=== PATIENT | female | born 1965 | race Caucasian/White ===

== ENCOUNTER → 2016-10-10 | Day surgery (SDC) | payer BC ==
--- NOTE | 2016-10-12 08:07 | PATH ---
Cytology Non-Gynecological Report Patient Name: DEMETRIA HOWARD [facility]. Rec. #: [id number] /Age/Gender: 1965 (Age: 51) / F Account: [id number] Location: RADIOLOGY Taken: 10/10/2016 Received: 10/10/2016 Reported: 10/12/2016 Physicians: Tuan James M.D. Specimen(s) Received LEFT THYROID FNA Clinical History Left thyroid nodule, 1.82 x 1.37 x 1.41 cm Final Diagnosis THYROID GLAND, LEFT LOBE, US GUIDED FINE NEEDLE ASPIRATION BIOPSY: SATISFACTORY FOR EVALUATION. NO MALIGNANT CELLS IDENTIFIED. CONSISTENT WITH NODULAR GOITER WITH CYSTIC CHANGE (BENIGN FOLLICULAR NODULE, B[place]ESDA CATEGORY II, BENIGN), SEE COMMENT. Comment: The smears and the cell block show scattered clusters of follicular epithelial cells with Hurthle cell (oncocytic) change. Numerous macrophages are present indicative of cystic change; cyst lining cells are also present. Abundant colloid is present. Electronically Signed Alfonzo Wallace M.D. Gross Description Received are four air dried smears, four smears in 95% alcohol, and 20 cc of bloody fluid in formalin. Four diff-quik stained slides, four Pap stained slides and one cell block are made.
== END | disposition home or self-care (01) ==
LOC: JRADIR 08:18
PROVIDERS: ATTEND Internal Medicine Endocrinology, Diabetes & Metabolism
PROC: 0G9G3ZX Drainage of Left Thyroid Gland Lobe, Percutaneous Approach, Diagnostic (ICD-10-PCS; principal; 2016-10-10)
PROC: BG44ZZZ Ultrasonography of Thyroid Gland (ICD-10-PCS; 2016-10-10)
DX: E04.1 Nontoxic single thyroid nodule (principal)
CPT/HCPCS: 76942; 88173; 88305-TC